=== PATIENT | male | born 1965 | race Caucasian/White ===

== ENCOUNTER 2017-12-12 17:24 | Emergency (ER) | payer OTHER ==
[~2017-12-12] VITALS: Ht 177.8 cm; Wt 86.2 kg
[2017-12-12 17:57] LABS: BASO % 1 % (0-3); EOS # 0.1 x10^3/uL (0.0-0.7); EOS % 1 % (0-3); HEMATOCRIT 42.8 % (39.0-53.0); HEMOGLOBIN 15.1 g/dL (13.0-17.5); LYMPH # 2.1 x10^3/uL (1.0-4.8); LYMPH % 33 % (24-48); MEAN CORPUSCULAR HEMOGLOBIN 34 pg (25-35); MEAN CORPUSCULAR HGB CONC 35 g/dL (31-37); MEAN CORPUSCULAR VOLUME 97 fL (79-100); MONO # 0.6 x10^3/uL (0.0-1.1); MONO % 10 % (0-9); NEUT # 3.5 x10^3uL (1.8-7.7); NEUT % 55 % (31-73); PLATELET COUNT 158 x10^3/uL (140-400); RED BLOOD COUNT 4.42 x10^6/uL (4.30-5.70); RED CELL DISTRIBUTION WIDTH 13.1 % (11.5-14.5); WHITE BLOOD COUNT 6.4 x10^3/uL (4.0-11.0)
[2017-12-12] MEDS ORDERED: MULTIVIT INFUSN,ADULT 4,VIT K 10 ML, THIAMINE INJ 100 MG, FOLIC ACID INJ 1 MG in IV NOR... IV SCH (18:00)
[2017-12-12 18:17] LABS: CALCIUM 9.7 mg/dL (8.5-10.1); CREATININE 0.9 mg/dL (0.7-1.3); GFR 88.6; POTASSIUM 3.4 mmol/L (3.5-5.1)
[2017-12-12 18:27] LABS: BILIRUBIN,URINE NEGATIVE (NEG); CLARITY,URINE CLEAR; COLOR,URINE YELLOW; NITRITE,URINE NEGATIVE (NEG); PROTEIN,URINE 100 mg/dL (NEG-TRACE)
[2017-12-12 18:31] LABS: ALBUMIN 4.1 g/dL (3.4-5.0); DIRECT BILIRUBIN 0.1 mg/dL (0.0-0.2); TOTAL BILIRUBIN 0.4 mg/dL (0.2-1.0); TOTAL PROTEIN 8.1 g/dL (6.4-8.2)
[2017-12-12 18:35] LABS: BARBITURATES NEG (NEG); BENZODIAZEPINES NEG (NEG); CANNABINOIDS NEG (NEG); COCAINE NEG (NEG); METHADONE NEG (NEG); OPIATES NEG (NEG); PHENCYCLIDINE NEG (NEG)
[2017-12-12 18:36] LABS: AMPHETAMINE/METHAMPHETAMINE NEG (NEG); BACTERIA,URINE 0 /HPF (0-FEW); HYALINE CASTS, URINE MODERATE /HPF; SQUAMOUS EPITHELIAL CELL,UR FEW /LPF; WBC,URINE RARE /HPF (0-4)
--- NOTE | 2017-12-12 19:03 | PHYS DOC ---
Past Medical History Past Medical History: Alcoholism, Hypertension Past Surgical History: Other Additional Past Surgical Histo: BACK Alcohol Use: Heavy Drug Use: None Adult General Chief Complaint Chief Complaint: ALCOHOL INTOXICATION HPI HPI Patient is a 52 year old male who presents with ETOH intoxication/abuse. Patient states he already has an inpatient bed and a treatment facility in [facility] but he had to come to the emergency department for medical clearance. He does endorse drinking large amounts of alcohol earlier today. He denies a prior history of seizures but does have some shakiness as he withdraws from alcohol. No additional acute complaints today. No chest pain. No recent fevers or chills. Review of Systems Review of Systems Constitutional: Denies fever or chills Eyes: Denies change in visual acuity HENT: Denies nasal congestion or sore throat Respiratory: Denies cough or shortness of breath Cardiovascular: No additional information not addressed in HPI GI: Denies abdominal pain, nausea, vomiting, bloody stool Musculoskeletal: Denies back pain or joint pain Integument: Denies rash or skin lesions Neurologic: Denies focal neuro complaints All other systems were reviewed and found to be within normal limits, except as documented in this note. Current Medications Current Medications Current Medications Medications (Trade) Dose Ordered Sig/Jan Start Time Stop Time Status Last Admin Dose Admin Multivitamins 10 ml/Thiamine HCl 100 mg/Folic Acid 1 mg/Sodium Chloride 1,011.2 ml @ 100 mls/ hr DAILY 12/12/17 18:00 12/12/17 19:54 DC 12/12/17 18:01 100 MLS/HR Allergies Allergies Allergies Coded Allergies Type Severity Reaction Last Updated Verified morphine Allergy Intermediate 12/12/17 Yes Physical Exam Physical Exam Constitutional: Well developed, well nourished, no acute distress, non-toxic appearance HENT: Normocephalic, atraumatic, bilateral external ears normal, oropharynx moist Eyes: PERRLA, EOMI Neck: Normal range of motion Cardiovascular:Heart rate regular rhythm, no murmur Lungs & Thorax: Bilateral breath sounds clear to auscultation Abdomen: Bowel sounds normal, soft, no tenderness Skin: Warm, dry, no erythema, no rash. Extremities: No edema Neurologic: Alert and oriented X 3 Psychologic: Affect normal Current Patient Data Vital Signs Vital Signs Date Time Temp Pulse Resp B/P (MAP) Pulse Ox O2 Delivery O2 Flow Rate FiO2 12/12/17 19:33 78 27 155/79 (104) Room Air 12/12/17 18:03 95 12/12/17 17:41 98.9 98.9 Lab Values Laboratory Tests Test 12/12/17 17:28 12/12/17 17:43 Urine Collection Type Unknown Urine Color Yellow Urine Clarity Clear Urine pH 7.0 Urine Specific [place] 1.015 Urine Protein 100 mg/dL (NEG-TRACE) Urine Glucose (UA) Negative mg/dL (NEG) Urine Ketones (Stick) Negative mg/dL (NEG) Urine Blood Small (NEG) Urine Nitrite Negative (NEG) Urine Bilirubin Negative (NEG) Urine Urobilinogen Dipstick 1.0 mg/dL (0.2 mg/dL) Urine Leukocyte Esterase Negative (NEG) Urine RBC 3-5 /HPF (0-2) Urine WBC Rare /HPF (0-4) Urine Squamous Epithelial Cells Few /LPF Urine Bacteria 0 /HPF (0-FEW) Urine Hyaline Casts Moderate /HPF Urine Mucus Mod /LPF Urine Opiates Screen Neg (NEG) Urine Methadone Screen Neg (NEG) Urine Barbiturates Neg (NEG) Urine Phencyclidine Screen Neg (NEG) Urine Amphetamine/Methamphetamine Neg (NEG) Urine Benzodiazepines Screen Neg (NEG) Urine Cocaine Screen Neg (NEG) Urine Cannabinoids Screen Neg (NEG) Urine Ethyl Alcohol Pos (NEG) White Blood Count 6.4 x10^3/uL (4.0-11.0) Red Blood Count 4.42 x10^6/uL (4.30-5.70) Hemoglobin 15.1 g/dL (13.0-17.5) Hematocrit 42.8 % (39.0-53.0) Mean Corpuscular Volume 97 fL (79-100) Mean Corpuscular Hemoglobin 34 pg (25-35) Mean Corpuscular Hemoglobin Concent 35 g/dL (31-37) Red Cell Distribution Width 13.1 % (11.5-14.5) Platelet Count 158 x10^3/uL (140-400) Neutrophils (%) (Auto) 55 % (31-73) Lymphocytes (%) (Auto) 33 % (24-48) Monocytes (%) (Auto) 10 % (0-9) H Eosinophils (%) (Auto) 1 % (0-3) Basophils (%) (Auto) 1 % (0-3) Neutrophils # (Auto) 3.5 x10^3uL (1.8-7.7) Lymphocytes # (Auto) 2.1 x10^3/uL (1.0-4.8) Monocytes # (Auto) 0.6 x10^3/uL (0.0-1.1) Eosinophils # (Auto) 0.1 x10^3/uL (0.0-0.7) Basophils # (Auto) 0.0 x10^3/uL (0.0-0.2) Sodium Level 144 mmol/L (136-145) Potassium Level 3.4 mmol/L (3.5-5.1) L Chloride Level 102 mmol/L (98-107) Carbon Dioxide Level 27 mmol/L (21-32) Anion Gap 15 (6-14) H Blood Urea Nitrogen 10 mg/dL (8-26) Creatinine 0.9 mg/dL (0.7-1.3) Estimated GFR (Cockcroft-Gault) 88.6 BUN/Creatinine Ratio 11 (6-20) Glucose Level 137 mg/dL (70-99) H Calcium Level 9.7 mg/dL (8.5-10.1) Total Bilirubin 0.4 mg/dL (0.2-1.0) Direct Bilirubin 0.1 mg/dL (0.0-0.2) Aspartate Amino Transferase (AST) 138 U/L (15-37) H Alanine Aminotransferase (ALT) 128 U/L (16-63) H Alkaline Phosphatase 72 U/L (46-116) Total Protein 8.1 g/dL (6.4-8.2) Albumin 4.1 g/dL (3.4-5.0) Albumin/Globulin Ratio 1.0 (1.0-1.7) Ethyl Alcohol Level 321 mg/dL (0-10) H Laboratory Tests 12/12/17 17:43 Laboratory Tests 12/12/17 17:43 EKG EKG [] Radiology/Procedures Radiology/Procedures [] Course & Med Decision Making Course & Med Decision Making Pertinent Labs and Imaging studies reviewed. (See chart for details) Patient is evaluated in the ER initially by the mid-level provider. Psychiatric assessment team consult is placed and that consult is in progress when I assumed care of the patient. Patient is in no acute distress. Labs are pending. 19:50: Patient is cleared for discharge from the ER and transferred to an inpatient detox center. His is currently present and will drive him there. All of their questions are answered prior to discharge home. Patient is agreeable to this plan of care. Dragon Disclaimer Dragon Disclaimer This electronic medical record was generated, in whole or in part, using a voice recognition dictation system. Departure Departure Referrals: UNKNOWN PCP NAME (PCP) BHARTI SHEARER DO Dec 12, 2017 19:03
[2017-12-12 19:33] VITALS: BP 155/79
== END 2017-12-12 19:54 | disposition home or self-care (01) ==
LOC: ER 17:24
DX: F10.229 Alcohol dependence with intoxication, unspecified (principal); I10 Essential (primary) hypertension; Y90.8 Blood alcohol level of 240 mg/100 ml or more; Z88.5 Allergy status to narcotic agent
CPT/HCPCS: 36415; 80053; 80307; 81001; 82248; 85025; 96365; 99284; G0480; J7030; 96366; G0479

== ENCOUNTER 2019-08-31 14:24 | Emergency (ER) | payer SELFPAY ==
[~2019-08-31] VITALS: Ht 177.8 cm; Wt 95.0 kg
[2019-08-31] MEDS ORDERED: MULTIVIT INFUSN,ADULT 4,VIT K 10 ML, THIAMINE INJ 100 MG, FOLIC ACID INJ 1 MG in IV NOR... IV ONE (15:00)
[2019-08-31 15:48] LABS: BASO # 0.1 x10^3/uL (0.0-0.2); BASO % 1 % (0-3); EOS # 0.1 x10^3/uL (0.0-0.7); EOS % 2 % (0-3); HEMATOCRIT 41.9 % (39.0-53.0); HEMOGLOBIN 14.8 g/dL (13.0-17.5); LYMPH # 1.8 x10^3/uL (1.0-4.8); LYMPH % 40 % (24-48); MEAN CORPUSCULAR HEMOGLOBIN 34 pg (25-35); MEAN CORPUSCULAR HGB CONC 35 g/dL (31-37); MEAN CORPUSCULAR VOLUME 97 fL (79-100); MONO # 0.3 x10^3/uL (0.0-1.1); MONO % 7 % (0-9); NEUT # 2.3 x10^3/uL (1.8-7.7); NEUT % 50 % (31-73); PLATELET COUNT 138 x10^3/uL (140-400); RED BLOOD COUNT 4.34 x10^6/uL (4.30-5.70); RED CELL DISTRIBUTION WIDTH 15.5 % (11.5-14.5); WHITE BLOOD COUNT 4.6 x10^3/uL (4.0-11.0)
--- NOTE | 2019-08-31 15:48 | PHYS DOC ---
Past Medical History Past Medical History: Alcoholism, Hypertension Past Surgical History: Other Additional Past Surgical Histo: BACK Smoking Status: Never Smoker Additional Information: CHEWING TOBACCO Alcohol Use: Heavy Drug Use: None General Adult EDM: Chief Complaint: ALCOHOL INTOXICATION HPI: HPI: Patient is a 54 year old [f__sex] who presents with [] Review of Systems: Review of Systems: Constitutional: Denies fever or chills. [] Eyes: Denies change in visual acuity. [] HENT: Denies nasal congestion or sore throat. [] Respiratory: Denies cough or shortness of breath. [] Cardiovascular: Denies chest pain or edema. [] GI: Denies abdominal pain, nausea, vomiting, bloody stools or diarrhea. [] : Denies dysuria. [] Musculoskeletal: Denies back pain or joint pain. [] Integument: Denies rash. [] Neurologic: Denies headache, focal weakness or sensory changes. [] Endocrine: Denies polyuria or polydipsia. [] Lymphatic: Denies swollen glands. [] Psychiatric: Denies depression or anxiety. [] Heart Score: Risk Factors: Risk Factors: DM, Current or recent (<one month) smoker, HTN, HLP, family history of CAD, obesity. Risk Scores: Score 0 - 3: 2.5% MACE over next 6 weeks - Discharge Home Score 4 - 6: 20.3% MACE over next 6 weeks - Admit for Clinical Observation Score 7 - 10: 72.7% MACE over next 6 weeks - Early Invasive Strategies Current Medications: Current Medications Medications (Trade) Dose Ordered Sig/Jan Start Time Stop Time Status Last Admin Dose Admin Multivitamins 10 ml/Thiamine HCl 100 mg/Folic Acid 1 mg/Sodium Chloride 1,011.2 ml @ 1,000 mls/ hr 1X ONCE 08/31/19 15:00 08/31/19 16:00 Allergies: Allergies: Allergies Coded Allergies Type Severity Reaction Last Updated Verified morphine Allergy Intermediate 12/12/17 Yes Physical Exam: PE: Constitutional: Well developed, well nourished, no acute distress, non-toxic appearance. [] HENT: Normocephalic, atraumatic, bilateral external ears normal, oropharynx moist, no oral exudates, nose normal. [] Eyes: PERRLA, EOMI, conjunctiva normal, no discharge. [] Neck: Normal range of motion, no tenderness, supple, no stridor. [] Cardiovascular:Heart rate regular rhythm, no murmur [] Lungs & Thorax: Bilateral breath sounds clear to auscultation [] Abdomen: Bowel sounds normal, soft, no tenderness, no masses, no pulsatile masses. [] Skin: Warm, dry, no erythema, no rash. [] Back: No tenderness, no CVA tenderness. [] Extremities: No tenderness, no cyanosis, no clubbing, ROM intact, no edema. [] Neurologic: Alert and oriented X 3, normal motor function, normal sensory function, no focal deficits noted. [] Psychologic: Affect normal, judgement normal, mood normal. [] Current Patient Data: Vital Signs: Vital Signs Date Time Temp Pulse Resp B/P (MAP) Pulse Ox O2 Delivery O2 Flow Rate FiO2 08/31/19 14:44 98.7 85 20 138/83 (101) 92 Room Air 98.7 EKG: EKG: @1538 NSR at 87bpm, NO ST elevation, QRS 92ms, QT/QTc 362/436ms Radiology/Procedures: Radiology/Procedures: [] Course & Med Decision Making: Course & Med Decision Making Pertinent Labs and Imaging studies reviewed. (See chart for details) [] Dragon Disclaimer: Dragon Disclaimer: This electronic medical record was generated, in whole or in part, using a voice recognition dictation system. Departure Departure Impression: Primary Impression: Alcohol abuse Disposition: HOME, SELF-CARE Condition: STABLE Referrals: UNKNOWN PCP NAME (PCP) Patient Instructions: Alcohol and Drug Addiction, Finding Treatment, How Much is Too Much Alcohol, [place] Justicifation of Admission Dx: Justifications for Admission: Justification of Admission Dx: N/A COLIN SUNG DO Aug 31, 2019 15:48
[2019-08-31 15:58] LABS: PROTHROMBIN TIME PATIENT 12.9 SEC (11.7-14.0)
[2019-08-31 15:59] LABS: CALCIUM 8.8 mg/dL (8.5-10.1); CREATININE 1.1 mg/dL (0.7-1.3); GFR 69.8; POTASSIUM 3.5 mmol/L (3.5-5.1)
[2019-08-31 16:00] VITALS: BP 138/83
[2019-08-31 16:07] LABS: ALBUMIN/GLOBULIN RATIO 1.1 (1.0-1.7); MAGNESIUM 1.9 mg/dL (1.8-2.4); TOTAL BILIRUBIN 0.4 mg/dL (0.2-1.0); TOTAL PROTEIN 7.6 g/dL (6.4-8.2)
[2019-08-31 16:12] LABS: SALIC < 2.8 mg/dL (2.8-20.0)
[2019-08-31 16:14] LABS: ACETAMIN < 2 mcg/ml (10-30); ETHANOL 422 mg/dL (0-10)
--- NOTE | 2019-09-02 12:07 | EKG ---
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
== END 2019-08-31 17:23 | disposition home or self-care (01) ==
LOC: ER 14:24
DX: F10.229 Alcohol dependence with intoxication, unspecified (principal); Y90.8 Blood alcohol level of 240 mg/100 ml or more; I10 Essential (primary) hypertension; F17.220 Nicotine dependence, chewing tobacco, uncomplicated; Z88.5 Allergy status to narcotic agent
CPT/HCPCS: 36415; 80053; 80329; 83735; 85025; 85610; 85730; 93005; 96365; 99284; G0480; J3411; J3490; J7030

== ENCOUNTER → 2020-01-22 | Outpatient (CLI) | payer OTHER | LOC: RT 06:02 | PROVIDERS: ATTEND Family Medicine | DX: R06.81 Apnea, not elsewhere classified (principal) | CPT/HCPCS: G0399 ==

== ENCOUNTER → 2020-05-14 | Outpatient (CLI) | payer OTHER ==
[~2020-05-14] MED LIST: LISI20TA18 PO; ROSU20TA28 PO
== END ==
LOC: LAB 09:55
PROVIDERS: ATTEND Internal Medicine Gastroenterology
DX: Z01.812 Encounter for preprocedural laboratory examination (principal); Z12.11 Encounter for screening for malignant neoplasm of colon; Z20.822 Contact with and (suspected) exposure to COVID-19
CPT/HCPCS: U0003

== ENCOUNTER → 2020-05-15 | Day surgery (SDC) | payer OTHER ==
[~2020-05-15] MED LIST changes: +IV RINGERS,LACTATED 1000ML 1,000 ML IV SCH; +LIDOCAINE 2% PF 5 ML VIAL. ONE; +PROPOFOL 10 MG/ML (20ML) VIAL. IV ONE
[2020-05-15 09:31] VITALS: BP 113/62
--- NOTE | 2020-05-15 11:15 | CONS ---
DATE OF CONSULTATION: 05/15/2020 REASON FOR CONSULTATION: Colorectal screening. REFERRING PHYSICIAN: Aruna Esparza MD. HISTORY OF PRESENT ILLNESS: This is a 55-year-old male with past medical history significant for back surgery, tonsillectomy, varicocele repair as well as hypertension, hyperlipidemia, seen for colonoscopy. Bowel habits are regular without diarrhea or constipation. There has been no melena and/or hematochezia. Weight and appetite are stable. No family history of colon cancer is noted. He is, otherwise, without additional complaints. PAST MEDICAL HISTORY: Hypertension, hyperlipidemia, status post back surgery, tonsillectomy, varicocele repair. MEDICATIONS: Include lisinopril and rosuvastatin. ALLERGIES: TO MORPHINE. FAMILY AND SOCIAL HISTORY: Significant for diabetes. REVIEW OF SYSTEMS: HEENT: There is no decreased hearing or visual acuity issues. CARDIAC: There is history of hypertension. ENDOCRINE: History of hyperlipidemia. NEUROLOGIC: No stroke, migraine, neuropathy. PSYCHIATRIC: No mood swings, depression, insomnia. HEMATOLOGIC: No bleeding, bruising, coagulopathy. DERMATOLOGIC: No skin rashes or pruritus. MUSCULOSKELETAL: History of osteoarthrosis. GASTROINTESTINAL: See history of present illness. PHYSICAL EXAMINATION: GENERAL: Reveals a well-nourished, well-developed male who is alert, cooperative, in no acute distress. VITAL SIGNS: Temperature is 98.4, pulse 79, respirations 20. LUNGS: Clear. CARDIOVASCULAR: Reveals an S1, S2 without S3, S4 or appreciable murmur. ABDOMEN: Reveals a soft abdomen, normal bowel sounds, without appreciable hepatosplenomegaly. EXTREMITIES: Reveals no cyanosis, clubbing or edema. IMPRESSION: Colorectal screening is warranted at this time. Risks and benefits of procedure including risk of hemorrhage and perforation during the operation were discussed. The patient is willing to proceed at this time. I thank Dr. Aruna Esparza for allowing us to consult and participate in the patient's care. NICHOLE FOREMAN MD DR: ZELDA/igor JOB#: [id number] / [id number] ARUNA Stone MD ,
--- NOTE | 2020-05-19 14:20 | PATHOLOGY ---
[facility] Accession Number: [id number] . 01 Material submitted: . sigmoid colon - SIGMOID COLON POLYP BIOPSY . 01 Clinical history: . SCREENING CRC SCREENING COLONOSCOPY . 02 Diagnosis: Colon biopsies, sigmoid colon polyp: - Tubular adenoma. (JPM:[facility]; 05/18/2020) S 05/18/2020 1539 Local . 02 Comment: There is no high grade dysplasia or evidence of malignancy. (JPM:[facility]; 05/18/2020) . 02 Electronically signed: . Rohan Ann MD, Pathologist NPI- [id number] . 01 Gross description: . Received in formalin labeled "Iris, Lauryn, sigmoid polyp BX" are multiple lewis-brown soft tissue fragments measuring in aggregate 0.6 x 0.5 x 0.1 cm. The specimen is submitted entirely in A1. [place] [place] SY/[facility] 05/17/2020 1111 Local . 02 Pathologist provided ICD-10: D12.5 . 02 CPT . 155072 Specimen Comment: A courtesy copy of this report has been sent to [phone], [phone] Specimen Comment: [id number], Specimen Comment: Report sent to ,DR PERALTA / DR HILL Performed at: 01 [facility] [address], [place] [id number] MD Ronnie Stinson MD Phone: [phone] Performed at: 02 [facility] [address] [place], [place] [id number] MD Rohan Ann MD Phone: [phone]
== END | disposition home or self-care (01) ==
LOC: ENDOS 07:57
PROVIDERS: ATTEND Internal Medicine Gastroenterology
DX: Z12.11 Encounter for screening for malignant neoplasm of colon (principal); K64.0 First degree hemorrhoids; K57.30 Diverticulosis of large intestine without perforation or abscess without bleeding; K63.89 Other specified diseases of intestine; D12.5 Benign neoplasm of sigmoid colon; E78.00 Pure hypercholesterolemia, unspecified; I10 Essential (primary) hypertension; G47.30 Sleep apnea, unspecified; F32.9 Major depressive disorder, single episode, unspecified; Z79.899 Other long term (current) drug therapy; Z98.890 Other specified postprocedural states; Z83.3 Family history of diabetes mellitus; Z87.891 Personal history of nicotine dependence; Z88.8 Allergy status to other drugs, medicaments and biological substances
CPT/HCPCS: 45380; 88305; J2704

== ENCOUNTER → 2020-06-01 | Outpatient (CLI) | payer OTHER ==
[2020-05-15 09:31] VITALS: BP 113/62
[~2020-06-01] MED LIST changes: -IV RINGERS,LACTATED 1000ML 1,000 ML IV SCH; -LIDOCAINE 2% PF 5 ML VIAL. ONE; -PROPOFOL 10 MG/ML (20ML) VIAL. IV ONE
--- NOTE | 2020-06-01 12:48 | CARD ---
MR#: [id number] Date of Study: 06/01/2020 Ordering Physician: ARUNA HILL, Referring Physician: ARUNA HILL Tech: Charley Manuel REN APPROVED REPORT EXAM: Two-dimensional and M-mode echocardiogram with Doppler and color Doppler. Other Information Quality : FairHR: 79bpm Rhythm : NSR INDICATION Hypertension/HCVD RISK FACTORS Hypertension Obesity Hyperlipidemia 2D DIMENSIONS RVDd3.7 (2.9-3.5cm)Left Atrium(2D)4.0 (1.6-4.0cm) IVSd1.5 (0.7-1.1cm)LVDd4.5 (3.9-5.9cm) LVOT Diameter2.3 (1.8-2.4cm)PWd1.2 (0.7-1.1cm) LVDs3.0 (2.5-4.0cm)FS (%) 33.5 % SV58.9 mlLVEF(%)62.3 (>50%) Aortic Valve LVOT Peak John.135.9cm/sLVOT VTI 31.43cm Mitral Valve MV E Vsnxwpjd31.9cm/sMV DECEL [id number] MV A Muobdxjn77.6cm/sMV [id number] E/A Ratio1.1MVA (PHT)2.98cm2 Tricuspid Valve TR P. [id number]/sTR Peak Gr.23mmHg LEFT VENTRICLE The left ventricle is normal size. There is mild concentric left ventricular hypertrophy. The left ve ntricular systolic function is normal and the ejection fraction is within normal range. LV ejection fraction of 60-65%. There is normal LV segmental wall motion. The left ventricular diastolic function and filling is normal for age. RIGHT VENTRICLE The right ventricle is normal size. There is normal right ventricular wall thickness. The right ventr icular systolic function is normal. ATRIA The left atrium size is normal. The right atrium size is normal. The interatrial septum is intact wit h no evidence for an atrial septal defect or patent foramen ovale as noted on 2-D or Doppler imaging. AORTIC VALVE The aortic valve is normal in structure and function. Doppler and Color Flow revealed no significant aortic regurgitation. There is no significant aortic valvular stenosis. MITRAL VALVE The mitral valve is normal in structure and function. There is no evidence of mitral valve prolapse. There is no mitral valve stenosis. Doppler and Color-flow revealed trace to mild mitral regurgitation . TRICUSPID VALVE The tricuspid valve is normal in structure and function. Doppler and Color Flow revealed trace tricus pid regurgitation. Estimated PAP 27 mmHg. There is no tricuspid valve stenosis. PULMONIC VALVE The pulmonary valve is normal in structure and function. Doppler and Color Flow revealed no pulmonic valvular regurgitation. GREAT VESSELS The aortic root is mildly enlarged. The ascending aorta is mildly dilated. The IVC is normal in size and collapses >50% with inspiration. PERICARDIAL EFFUSION There is no evidence of significant pericardial effusion. Critical Notification Critical Value: No <Conclusion> The left ventricle is normal size. The left ventricular systolic function is normal and the ejection fraction is within normal range. LV ejection fraction of 60-65%. There is mild concentric left ventricular hypertrophy. Doppler and Color Flow revealed no significant aortic regurgitation. There is no significant aortic valvular stenosis. Doppler and Color-flow revealed trace to mild mitral regurgitation. Doppler and Color Flow revealed trace tricuspid regurgitation. Estimated PAP 27 mmHg. The aortic root is mildly enlarged. The ascending aorta is mildly dilated. Signed by : Andrew Morris MD Electronically Approved : 06/01/2020 12:47:35
== END ==
LOC: ECHO 10:59
PROVIDERS: ATTEND Family Medicine
DX: I34.0 Nonrheumatic mitral (valve) insufficiency (principal); I11.9 Hypertensive heart disease without heart failure; I77.810 Thoracic aortic ectasia
CPT/HCPCS: 93306

== ENCOUNTER → 2020-11-10 | Outpatient (CLI) | payer OTHER ==
[2020-05-15 09:31] VITALS: BP 113/62
--- NOTE | 2020-11-10 14:00 | KCIC ---
EXAM: Lumbar spine MRI without contrast. HISTORY: Left lower extremity radiculopathy. TECHNIQUE: Multiplanar, multisequence magnetic resonance imaging of the lumbar spine was performed wi thout contrast. COMPARISON: None. FINDINGS: There is mild lumbar scoliosis. There is 5 mm retrolisthesis of L5 on S1. There is degenera tive endplate remodeling with disc space narrowing and osteophytosis at L5-S1. There is also endplate remodeling and disc desiccation at L3-L4 and L4-L5. There is no acute or subacute fracture or suspic ious osseous lesion. The conus terminates at L1. At L1-L2, there is minimal bilateral facet arthropathy. There is no stenosis. At L2-L3, there is endplate remodeling. There is minimal facet arthropathy. There is prominent dorsal epidural fat. There is mild central canal stenosis. At L3-L4, there is a shallow left foraminal disc protrusion and annular tear superimposed on a disc b ulge and endplate remodeling. There is also a suspected shallow left foraminal to lateral disc protru sadia. There is minimal facet arthropathy. There is prominent dorsal epidural fat. There is mild right and minimal left foraminal stenosis with abutment of the exiting right greater than left L3 nerve ro ots. There is mild central canal stenosis. At L4-L5, there is a broad-based posterior central disc protrusion and annular tear with minimal infe rior extrusion superimposed on a disc bulge and endplate remodeling. There is mild bilateral facet ar thropathy. There is prominent dorsal epidural fat. There is mild left foraminal stenosis. There is mo derate central canal stenosis. At L5-S1, there are laminectomy decompression changes. There is retrolisthesis. There is a diffuse di sc bulge and endplate osteophytosis. There is mild bilateral facet arthropathy. There is mild right a nd moderate left foraminal stenosis with abutment the exiting L5 nerve roots. There is mild effacemen t of the right greater than left lateral recesses with abutment the traversing right greater than lef t S1 nerve root. IMPRESSION: 1. Multilevel degenerative change involving the lumbar spine, described in detail above. The combinat ion of degenerative changes and prominent dorsal epidural fat results in mild central canal stenosis at L2-L3, moderate right and minimal left foraminal and mild central canal stenosis at L3-L4, mild le ft foraminal and moderate central canal stenosis at L4-L5 and moderate right and moderate left forami nal and bilateral lateral recess stenosis at L5-S1. 2. Laminectomy decompression at L5-S1. Electronically signed by: Rita Salazar MD (11/10/2020 10:38 AM) [facility]
== END ==
LOC: KCIC MRI 09:23
PROVIDERS: ATTEND Family Medicine
DX: M47.27 Other spondylosis with radiculopathy, lumbosacral region (principal); M51.17 Intervertebral disc disorders with radiculopathy, lumbosacral region; M48.07 Spinal stenosis, lumbosacral region; M41.86 Other forms of scoliosis, lumbar region; M21.372 Foot drop, left foot
CPT/HCPCS: 72148

== ENCOUNTER → 2020-12-30 | Outpatient (CLI) | payer OTHER ==
[2020-05-15 09:31] VITALS: BP 113/62
[~2020-12-30] MED LIST changes: +ACET500T68 PO; +AMLO2.5T5 PO; +ASPI-621 PO; +INDO50CA15 PO; +SUMA100T4 PO; +mens multivitamin
--- NOTE | 2020-12-30 17:08 | PDOC1 ---
INITIAL PAIN CONSULT DATE OF SERVICE: DOS: DATE: 12/30/20 TIME: 17:02 CHIEF COMPLAINT: Chief Complaint: Low back and left lower extremity pain HISTORY OF PRESENT ILLNESS: 55-year-old male presents with history of pain in the low back left lower extremity since July of this year starting fairly suddenly without the result of any specific injury or accident that he is aware of patient reports pain is increasing since that time in the low back rating to left posterior gluteus posterior thigh posterior calf anterior thigh anteromedial calf lateral thigh and posterior calf as well as into the foot to the ankle. Patient reports gets worse with walking standing changing position specially getting up from seated position and standing for prolonged periods greater than 20 to 30 minutes patie nt reports sharp throbbing stabbing shooting with numbness and radiating pain in the leg aching in the back intermittent intensity but always present patient reports generally does not awaken her from sleep at night but some nights it does not affect his bowel bladder control but does affect his go to walk fairly significantly although is not use any assistive devices. Patient is taking indomethacin as well as naproxen and Excedrin with indomethacin and the Excedrin does seem to help with the naproxen has not patient has had physical therapy in the past still doing stretching strength exercises on his own but is not helping significantly patient has had some chiropractic treatment previously but has been many years ago and nothing recently with chiropractic treatment. Patient rates his disability rating 0-10 10 being the worst is a 6 with family home responsibilities 8 with recreational activities 5 with social activity occupation for sexual behavior 6 with self-care and 8 with life support activities. Patient did have an MRI scan of the lumbar spine showing multilevel degenerative change degenerative changes and prominent dorsal epidural fat and mild central canal stenosis L2-3 moderate right and minimal left foraminal and mid mild central canal stenosis L3-4 mild left foraminal and moderate central canal stenosis at L4-5 and moderate right and moderate left foraminal and bilateral lateral recess stenosis at L5-S1 with previous laminectomy decompression at L5-S1 noted as well. PAST MEDICAL HISTORY: PMH: Hypertension, arthritis, alcoholism, hyperlipidemia PREVIOUS SURGERIES: Past Surgical Hx: Tonsillectomy, hernia repair 1985, laminectomy 2000 CURRENT MEDICATIONS: Current Meds: Active Scripts Medications Dose Route/Sig Max Daily Dose Days Date Category Acetaminophen 500 Mg Tablet 1 Tab PO PRN Q6HRS PRN 15 12/30/20 Reported Indomethacin 50 Mg Capsule 50 Mg PO PRN PRN 12/30/20 Reported [mens multivitamin] 1 Tab DAILY 12/30/20 Reported Amlodipine Besylate 2.5 Mg Tablet Unknown Dose PO DAILY 12/30/20 Reported Excedrin Extra Strength Caplet (Aspirin/Acetaminophen/Caffeine) 1 Each Tablet 1 Each PO PRN PRN 12/30/20 Reported Rosuvastatin Calcium 20 Mg Tablet 20 Mg PO DAILY 05/15/20 Reported Lisinopril 20 Mg Tablet 20 Mg PO DAILY 05/15/20 Reported ALLERGIES; Allergies: Coded Allergies: morphine (Verified Allergy, Intermediate, 05/15/20) FAMILY HISTORY: Family Hx: Diabetes, cardiomyopathy, Alzheimer's disease SOCIAL HISTORY: Social Hx: Patient does not dyan alcohol is currently recovering alcoholic does chew tobacco does not smoke not use any illegal illicit or recreational drugs is lives with his spouse with 1 child living at home in [facility] REVIEW OF SYSTEMS: ROS: Positive for those items mentioned in history of present illness, all systems are reviewed, otherwise negative ,and are complete full and well-documented on patient's chart. PHYSICAL EXAM: VS: Blood pressure is 141/106 pulse 77 respirations 16 temperature 98.1 F height is 69.5 inches weight 233 pounds PE: PHYSICAL EXAMINATION: GENERAL: The patient is awake, alert, oriented, appropriate, very pleasant in demeanor HEENT: Shows normocephalic, atraumatic. Extraocular movements are intact and symmetrical. Oral cavity: Mucous membranes moist and pink. Dentition is intact. NECK: Shows anterior throat supple without palpable lymphadenopathy noted. Swallow reflex symmetrical. CHEST: Shows normal on inspection. Breath sounds are clear bilaterally, distant but no rales or rhonchi. HEART: Shows S1, S2 clear. No murmurs auscultated. ABDOMEN: Soft, nontender, nondistended, obese. No palpable organomegaly is noted. BACK: Shows spine grossly in the midline. Normal-appearing cervical lordotic curvature. There is slightly increased thoracic kyphosis, some minor flattening of the lumbar lordotic curvature. Lumbar paraspinous muscles show symmetrical on inspection, on palpation shows some moderate tenderness diffusely throughout the upper, middle and lower distribution of the paraspinous muscles bilaterally and also into the lower thoracic paraspinous musculature, firm and tender, but without specific trigger points, without radiation of pain. The patient has good rotational motion of the lumbar spine, both laterally as well as extension and flexion without significant difficulty. No tenderness over the spinous processes, sacrum or sacroiliac regions. EXTREMITIES: Lower extremities show deep tendon reflexes 2+ in the patellar and tendo calcaneus tendons. Motor exam is 5 on a scale of 5 with right dorsiflexion, extension, quadriceps and hamstring flexion and 4/5 on the left. Patient has had mild foot drop on the left side. Peripheral pulses are 1+ posterior tibial. No peripheral edema is noted bilaterally. Lower extremities are warm and dry to touch, equal in color and appearance. Straight leg raise noted to be negative on the right, left side is positive at approximately 40 degrees, decreased with knee flexion. Gaenslen's and Alexx's maneuvers are negative bilaterally. The patient is able to stand, stand on his toes but has a significant favoring gait favoring the left lower extremity especially when first rising and first walking. Patient is not using any assistive devices to ambulate. SKIN: Shows warm and dry, good turgor. No edema. No sores, rashes or bruising throughout. IMPRESSION: Impression: 55-year-old male with approximate 5-month history increasing pain low back left lower extremity in a radicular fashion following L5-S1 dermatomal distribution. Partial foot drop left ankle MRI scan lumbar spine as noted Arthritis Hypertension Hyperlipidemia Plan: Options were discussed with patient including conservative management continued physical therapies and interventional techniques. Patient would like to pursue interventional techniques as he has been doing his physical therapy strengthening stretching exercises without significant improvement as well as oral analgesics without significant improvement as well. Patient wait for preauthorization with insurance provider once approved, we will plan on translaminar approach L5-S1 level L lumbar epidural steroid injection with fluoroscopic guidance. In the meantime, patient will continue with stretching s trengthening as currently as well as oral analgesics. BHARTI GUTIÉRREZ MD Dec 30, 2020 17:08
== END | disposition home or self-care (01) ==
LOC: PNCL 09:17
PROVIDERS: ATTEND Anesthesiology
DX: M54.16 Radiculopathy, lumbar region (principal); G89.29 Other chronic pain; I10 Essential (primary) hypertension; E78.5 Hyperlipidemia, unspecified; M19.90 Unspecified osteoarthritis, unspecified site; Z98.890 Other specified postprocedural states; Z79.899 Other long term (current) drug therapy; Z88.8 Allergy status to other drugs, medicaments and biological substances
CPT/HCPCS: 99214; G0463

== ENCOUNTER → 2021-01-13 | Outpatient (CLI) | payer OTHER ==
[2020-05-15 09:31] VITALS: BP 113/62
[~2021-01-13] MED LIST changes: +IOHEXOL 180 MG/ML 10 ML VIAL. ONE; +methylPREDNISolone ACETATE 40 MG/ML VIAL. ONE; +methylPREDNISolone ACETATE 80 MG/ML VIAL. ONE
--- NOTE | 2021-01-13 10:14 | PDOC ---
Progress Note - Pain Clinic Date of Service: DOS: DATE: 01/13/21 TIME: 10:11 Diagnosis: Dx: Lumbar radiculopathy with lumbar degenerative disease lumbar spinal stenosis and lumbar postlaminectomy syndrome History or Present Illness: HPI: 55-year-old male status post evaluation with complaints of low back and left lower extremity pain posterior gluteus posterior thigh posterior calf status post stretching strengthening as well as physical therapies exercises patient reports no significant pain low back left leg sharp shooting tingling stabbing on and off intensity worse with walking standing better with sitting or laying down still disturbed sleep fairly frequently patient has a new finding of cluster headache on the right side which is being treated with sumatriptan with some mild reduction in pain but still significant pain in the right eye and right headache. Patient reports her pain is 8 on scale 10 is worse over the past week with regard to his low back and left leg forward average 1 its least is a 4 today. Patient reports no bowel or bladder incontinence no motor loss but significant fatigability of the left lower extremity. Physical Exam: VS: Blood pressure is 139/98 pulse 81 respirations of 18 temperature is 97.5 F height is 5 feet 10 inches weight is 238 pounds. PE: PHYSICAL EXAMINATION: GENERAL: The patient is awake, alert, oriented, appropriate, very pleasant demeanor HEENT: Shows normocephalic, atraumatic. Extraocular movements are intact and symmetrical. Oral cavity: Mucous membranes moist and pink. Dentition is intact. NECK: Shows anterior throat supple without palpable lymphadenopathy noted. Swallow reflex symmetrical. CHEST: Shows normal on inspection. Breath sounds are clear bilaterally, distant but no rales or rhonchi. HEART: Shows S1, S2 clear. No murmurs auscultated. ABDOMEN: Soft, nontender, nondistended, obese. No palpable organomegaly is noted. BACK: Shows spine grossly in the midline. Normal-appearing cervical lordotic curvature. There is slightly increased thoracic kyphosis, some minor flattening of the lumbar lordotic curvature. Lumbar paraspinous muscles show symmetrical on inspection, on palpation shows some moderate tenderness diffusely throughout the upper, middle and lower distribution of the paraspinous muscles, but without specific trigger points, without radiation of pain. The patient has good rotational motion of the lumbar spine, both laterally as well as extension and flexion without significant difficulty. EXTREMITIES: Lower extremities show deep tendon reflexes 2+ in the patellar and tendo calcaneus tendons. Motor exam is 5 on a scale of 5 with right dorsiflexion, extension, quadriceps and hamstring flexion and 4/5 on the left. Peripheral pulses are 1+ posterior tibial. No peripheral edema is noted bilaterally. Lower extremities are warm and dry to touch, equal in color and appearance. SKIN: Shows warm and dry, good turgor. No edema. No sores, rashes or bruising throughout. Procedure: Procedure: Options were discussed with patient. Patient chart reviewed his current medication regimen updated current review of systems updated today as well. We will proceed with a lumbar epidural steroid injection today with fluoroscopic guidance. Risks were discussed including but not limited to: Bleeding, infection, possibility of epidural hematoma and subsequent neurological compromise, dural puncture, headaches, spinal cord and/or nerve damage, side effects of steroid medication, and poor results regarding pain control. Patient understands and wished to proceed. Patient will return to clinic in approximate 2 weeks for follow-up, was counseled as return appointment, activity level, and side effects to be aware of. Medication Injected: Med Injected: Procedure is lumbar epidural steroid injection under local anesthetic using sterile prep and drape at the L5-S1 level using C-arm fluoroscopic guidance in both AP and lateral views medications injected is 120 mg Depo-Medrol +10mL preservative-free normal saline and 2 mL contrast- condition at discharge is stable patient tolerated procedure well had no complications. Condition at Discharge: Condition at Discharge: Patient discharge stable, paced tolerated procedure well had no complications BHARTI GUTIÉRREZ MD Jan 13, 2021 10:14
--- NOTE | 2021-01-13 10:15 | PDOC4 ---
Procedure Note: ICD 10 Code: ICD 10 Code: M54.17 M51.87 M4 8.07 M 96.1 Procedure Note: Patient was consented for lumbar epidural steroid injection with fluoroscopic guidance. Risks were discussed including but not limited to: Bleeding, infection, possibility of epidural hematoma and subsequent neurological compromise, dural puncture, headaches, spinal cord and/or nerve damage, side effects of steroid medication, and poor results regarding pain control. Patient understands and wished to proceed. Procedure is lumbar epidural steroid injection under local anesthetic using sterile prep and drape at the L5-S1 level using C-arm fluoroscopic guidance in both AP and lateral views medications injected is 120 mg Depo-Medrol +10mL preservative-free normal saline and 2 mL contrast- condition at discharge is stable patient tolerated procedure well had no complications. BHARTI GUTIÉRREZ MD Jan 13, 2021 10:15
== END | disposition home or self-care (01) ==
LOC: PNCL 09:05
PROVIDERS: ATTEND Anesthesiology
DX: M51.16 Intervertebral disc disorders with radiculopathy, lumbar region (principal); M48.061 Spinal stenosis, lumbar region without neurogenic claudication; M96.1 Postlaminectomy syndrome, not elsewhere classified; I10 Essential (primary) hypertension; E78.00 Pure hypercholesterolemia, unspecified; G47.30 Sleep apnea, unspecified; F32.9 Major depressive disorder, single episode, unspecified; Z79.899 Other long term (current) drug therapy; Z98.890 Other specified postprocedural states; Z88.6 Allergy status to analgesic agent; Z79.82 Long term (current) use of aspirin; Z72.89 Other problems related to lifestyle
CPT/HCPCS: 62323; J1030; J1040; Q9965

== ENCOUNTER → 2021-01-27 | Outpatient (CLI) | payer OTHER ==
[2020-05-15 09:31] VITALS: BP 113/62
[~2021-01-27] MED LIST changes: -IOHEXOL 180 MG/ML 10 ML VIAL. ONE; +VERA240C2 PO; -methylPREDNISolone ACETATE 40 MG/ML VIAL. ONE; -methylPREDNISolone ACETATE 80 MG/ML VIAL. ONE
--- NOTE | 2021-01-27 11:41 | PDOC ---
Progress Note - Pain Clinic Date of Service: DOS: DATE: 01/27/21 TIME: 11:38 Diagnosis: Dx: Lumbar radiculopathy with lumbar degenerative disease lumbar spinal stenosis lumbar postlaminectomy syndrome History or Present Illness: HPI: 55-year-old male returns for follow-up status post lumbar epidural steroid injection x1. Patient reports about 70% improvement in the low back and left lower extremity pain increasing activity greater ease and comfort walking greater distances doing household activities work activities sleeping much better generally not awaken from sleep at night at this time patient reports is in the left low back posterior gluteus posterior thigh posterior calf not draining his left leg is much he did have some foot drop on previous exam. Patient reports pain is a 6 on scale 10 is worse over the past week to an average 1 its least is a 2 today. Patient reports no bowel or bladder i ncontinence very pleased with his progress and was increase activity significantly without as much fatigue in the left lower extremity moderately still present. Patient continues to do stretching strength exercises daily is walking daily also using oral analgesics as needed but this is decreased significantly since his last visit [id number] anti-inflammatories nearly as often. Physical Exam: VS: Blood pressure is 135/78 pulse 70 respirations 18 temperature 97 point degrees Fahrenheit weight is 239 pounds. PE: PHYSICAL EXAMINATION: GENERAL: The patient is awake, alert, oriented, appropriate, very pleasant in demeanor HEENT: Shows normocephalic, atraumatic. Extraocular movements are intact and sy mmetrical. Oral cavity: Mucous membranes moist and pink. Dentition is intact. NECK: Shows anterior throat supple without palpable lymphadenopathy noted. Swallow reflex symmetrical. CHEST: Shows normal on inspection. Breath sounds are clear bilaterally, distant but no rales or rhonchi. HEART: Shows S1, S2 clear. No murmurs auscultated. ABDOMEN: Soft, nontender, nondistended, obese. No palpable organomegaly is noted. BACK: Shows spine grossly in the midline. Normal-appearing cervical lordotic curvature. There is slightly increased thoracic kyphosis, some flattening of the lumbar lordotic curvature. Lumbar paraspinous muscles show symmetrical on inspection, on palpation shows some moderate tenderness diffusely throughout the upper, middle and lower distribution of the paraspinous muscles, but without specific trigger points, without radiation of pain. The patient has good rota tional motion of the lumbar spine, both laterally as well as extension and flexion without significant difficulty. EXTREMITIES: Lower extremities show deep tendon reflexes 2+ in the patellar and tendo calcaneus tendons. Motor exam is 5 on a scale of 5 with right dorsiflexion, extension, quadriceps and hamstring flexion and 4/5 on the left. Peripheral pulses are 1+ posterior tibial. No peripheral edema is noted bilaterally. Lower extremities are warm and dry to touch, equal in color and appearance. SKIN: Shows warm and dry, good turgor. No edema. No sores, rashes or bruising throughout. Procedure: Procedure: Options discussed with patient. Patient chart was reviewed his current medication regimen updated current review of systems updated today as well. We will preauthorize patient for a additional lumbar epidural steroid injection he did very well with the first injection about 70% improvement with pain returning down to radicular fashion following L5-S1 dermatomal distribution on the left but with improved foot drop as well. Patient will continue in the meantime, with stretching strength exercises daily as well as daily walking as well as oral analgesics as needed. Medication Injected: Med Injected: None Condition at Discharge: Condition at Discharge: Condition at discharge is stable. BHARTI GUTIÉRREZ MD Jan 27, 2021 11:41
== END | disposition home or self-care (01) ==
LOC: PNCL 10:22
PROVIDERS: ATTEND Anesthesiology
DX: M51.16 Intervertebral disc disorders with radiculopathy, lumbar region (principal); M48.061 Spinal stenosis, lumbar region without neurogenic claudication; M96.1 Postlaminectomy syndrome, not elsewhere classified; I10 Essential (primary) hypertension; E78.00 Pure hypercholesterolemia, unspecified; G47.30 Sleep apnea, unspecified; Z79.82 Long term (current) use of aspirin; Z79.899 Other long term (current) drug therapy; Z98.890 Other specified postprocedural states; Z88.6 Allergy status to analgesic agent; Z72.89 Other problems related to lifestyle
CPT/HCPCS: 99212; G0463

== ENCOUNTER → 2021-02-10 | Outpatient (CLI) | payer OTHER ==
[2020-05-15 09:31] VITALS: BP 113/62
[~2021-02-10] MED LIST changes: +IOHEXOL 180 MG/ML 10 ML VIAL. ONE; +VERA300C6 PO; +methylPREDNISolone ACETATE 40 MG/ML VIAL. ONE; +methylPREDNISolone ACETATE 80 MG/ML VIAL. ONE
--- NOTE | 2021-02-10 10:22 | PDOC ---
Progress Note - Pain Clinic Date of Service: DOS: DATE: 02/10/21 TIME: 10:20 Diagnosis: Dx: Lumbar radiculopathy with lumbar degenerative disease lumbar spinal stenosis lumbar postlaminectomy syndrome History or Present Illness: HPI: 56-year-old male returns for follow-up status post lumbar epidural steroid action x1. Patient worked at 70% improvement in the pain is from the low back and left lower extremity patient reports pain returning now also right-sided headache he is to complaining of is well today patient reports pain in the low back and left leg is rating the posterior gluteus posterior thigh posterior calf mostly in the hip and low back however patient reports is an 8 on scale 10 is worse over the past week 5 on average 3 distillation is a 5 today patient report s is aching sharp dull in the back shooting in the leg can be severe and unbearable with walking standing patient reports is better with sitting or laying down but is awakened from sleep about every 4-6 hours at night patient reports initially doing much better with distance walking doing household activities work activities and sleeping better as well as traveling with greater ease and comfort. Patient reports still significant headache on the right side which is "almost worst" in the back. Patient reports no bowel or bladder incontinence. Physical Exam: VS: Blood pressure 131/73 pulse 71 respirations are 16 temperature is 98.4 F weight is 236 pounds PE: PHYSICAL EXAMINATION: GENERAL: The patient is awake, alert, oriented, appropriate, very pleasant in demeanor HEENT: Shows normocephalic, atraumatic. Extraocular movements are intact and symmetrical. Oral cavity: Mucous membranes moist and pink. Dentition is intact. NECK: Shows anterior throat supple without palpable lymphadenopathy noted. Swallow reflex symmetrical. CHEST: Shows normal on inspection. Breath sounds are clear bilaterally. HEART: Shows S1, S2 clear. No murmurs auscultated. ABDOMEN: Soft, nontender, nondistended. No palpable organomegaly is noted. BACK: Shows spine grossly in the midline. Normal-appearing cervical lordotic curvature. There is slightly increased thoracic kyphosis, some flattening of the lumbar lordotic curvature, with well-healed midline surgical scar. Lumbar paraspinous muscles show symmetrical on inspection, on palpation shows some moderate tenderness diffusely throughout the upper, middle and lower distribution of the paraspinous muscles bilaterally and also into the lower thoracic paraspinous musculature, firm and tender, but without specific trigger points, without radiation of pain. The patient has good rotational motion of the lumbar spine, both laterally as well as extension and flexion without significant difficulty. No tenderness over the spinous processes, sacrum or sacroiliac regions. EXTREMITIES: Lower extremities show deep tendon reflexes 2+ in the patellar and tendo calcaneus tendons. Motor exam is 5 on a scale of 5 with right dorsiflexion, extension, quadriceps and hamstring flexion and 4/5 on the left. Peripheral pulses are 1+ posterior tibial. No peripheral edema is noted bilaterally. Lower extremities are warm and dry to touch, equal in color and appearance. SKIN: Shows warm and dry, good turgor. No edema. No sores, rashes or bruising throughout. Procedure: Procedure: Options discussed with the patient. Patient chart was reviewed as his current medication regimen updated current review of systems updated today as well. We will proceed with a lumbar epidural steroid injection today with fluoroscopic guidance. Risks were discussed including but not limited to: Bleeding, infection, possibility of epidural hematoma and subsequent neurological compromise, dural puncture, headaches, spinal cord and/or nerve damage, side effects of steroid medication, and poor results regarding pain control. Patient understands and wished to proceed. Patient will return to clinic in approximately 2 weeks for follow-up, was counseled as to return appointment, activity level, and side effect to be aware of. Medication Injected: Med Injected: Procedure is lumbar epidural steroid injection under local anesthetic using sterile prep and drape at the L5-S1 level using C-arm fluoroscopic guidance in both AP and lateral views medications injected is 120 mg Depo-Medrol +10mL preservative-free normal saline and 2 mL contrast- condition at discharge is stable patient tolerated procedure well had no complications. Condition at Discharge: Condition at Discharge: Condition at discharge stable, patient tolerated the procedure well and had no complications. BHARTI GUTIÉRREZ MD Feb 10, 2021 10:22
--- NOTE | 2021-02-10 10:23 | PDOC4 ---
Procedure Note: ICD 10 Code: ICD 10 Code: M54.17 M51.87 M4 8.07 M 96.1 Procedure Note: Patient was consented for lumbar epidural steroid traction with fluoroscopic guidance. Risks were discussed including but not limited to: Bleeding, infection, possibility of epidural hematoma and subsequent neurological compromise, dural puncture, headaches, spinal cord and/or nerve damage, side effects of steroid medication, and poor results regarding pain control. Patient understands and wished to proceed. Procedure is lumbar epidural steroid injection under local anesthetic using sterile prep and drape at the L5-S1 level using C-arm fluoroscopic guidance in both AP and lateral views medications injected is 120 mg Depo-Medrol +10mL preservative-free normal saline and 2 mL contrast- condition at discharge is stable patient tolerated procedure well had no complications. BHARTI GUTIÉRREZ MD Feb 10, 2021 10:23
== END | disposition home or self-care (01) ==
LOC: PNCL 09:18
PROVIDERS: ATTEND Anesthesiology
DX: M51.16 Intervertebral disc disorders with radiculopathy, lumbar region (principal); M48.061 Spinal stenosis, lumbar region without neurogenic claudication; M96.1 Postlaminectomy syndrome, not elsewhere classified; I10 Essential (primary) hypertension; E78.00 Pure hypercholesterolemia, unspecified; F32.9 Major depressive disorder, single episode, unspecified; G47.30 Sleep apnea, unspecified; Z79.82 Long term (current) use of aspirin; Z79.899 Other long term (current) drug therapy; Z72.89 Other problems related to lifestyle; Z98.890 Other specified postprocedural states
CPT/HCPCS: 62323; J1030; J1040; Q9965

== ENCOUNTER → 2021-02-24 | Outpatient (CLI) | payer OTHER ==
[2020-05-15 09:31] VITALS: BP 113/62
[~2021-02-24] MED LIST changes: -IOHEXOL 180 MG/ML 10 ML VIAL. ONE; -methylPREDNISolone ACETATE 40 MG/ML VIAL. ONE; -methylPREDNISolone ACETATE 80 MG/ML VIAL. ONE
--- NOTE | 2021-02-24 10:27 | PDOC ---
Progress Note - Pain Clinic Date of Service: DOS: DATE: 02/24/21 TIME: 10:21 Diagnosis: Dx: Lumbar radiculopathy lumbar degenerative disease lumbar spinal stenosis lumbar post laminectomy syndrome History or Present Illness: HPI: 56-year-old male returns for follow-up status post lumbar epidural steroid injection x2. Patient reports about 75% improvement for the first week or so after the last injection now reducing to 150% overall but the pain is still significantly reduced patient reports is much better than it was rating his low back and left lower extremity posterior gluteus posterior thigh posterior calf patient reports is not traveling as far down the leg at this time patient reports he is increase activity greater distance walking doing household activities work activities with greater ease as well patient reports the pain is stabbing aching dull and sharp in the back alternating and shooting in the leg on the left side on and off in intensity better with sitting or laying down but still waking her from sleep at night over the first few weeks it was doing much better with better ability to sleep as well. Patient reports no bowel or bladder incontinence no loss of motor function but significant fatigability of the left leg with extended standing walking for several hours when he is working as well. Patient rates his pain as 8 on scale 10 is worst 5 on average to its least over the last week and is a 5 today. Patient ALSO complains of significant cluster type headaches on the right side he is seeing his primary physician for this later on today. Physical Exam: VS: Blood pressure is 125/74 pulse 84 respirations 18 temperature 90.2 F weight is 235 pounds PE: PHYSICAL EXAMINATION: GENERAL: The patient is awake, alert, oriented, appropriate, very pleasant in demeanor HEENT: Shows normocephalic, atraumatic. Extraocular movements are intact and symmetrical. Oral cavity: Mucous membranes moist and pink. Dentition is intact. NECK: Shows anterior throat supple without palpable lymphadenopathy noted. Swallow reflex symmetrical. CHEST: Shows normal on inspection. Breath sounds are clear bilaterally, no rales or rhonchi auscultated. HEART: Shows S1, S2 clear. No murmurs auscultated. ABDOMEN: Soft, nontender, nondistended, obese. No palpable organomegaly is noted. BACK: Shows spine grossly in the midline. Normal-appearing cervical lordotic curvature. There is slightly increased thoracic kyphosis, some flattening of the lumbar lordotic curvature. Lumbar paraspinous muscles show symmetrical on inspection, on palpation shows some moderate tenderness diffusely throughout the upper, middle and lower distribution of the paraspinous muscles, but without specific trigger points, without radiation of pain. The patient has good rotational motion of the lumbar spine, both laterally as well as extension and flexion without significant difficulty. EXTREMITIES: Lower extremities show deep tendon reflexes 2+ in the patellar and tendo calcaneus tendons. Motor exam is 5 on a scale of 5 with right dorsiflexion, extension, quadriceps and hamstring flexion and 4/5 on the left. Peripheral pulses are 1+ posterior tibial. No peripheral edema is noted bilaterally. Lower extremities are warm and dry to touch, equal in color and appearance. SKIN: Shows warm and dry, good turgor. No edema. No sores, rashes or bruising throughout. Procedure: Procedure: Options discussed with the patient. Patient chart was viewed as his current medication regimen updated current review of systems updated today as well. Patient has persistent and returning lumbar radiculopathy in L5-S1 dermatomal distribution on the left, we will preauthorize patient for a third lumbar epidural steroid injection with fluoroscopic guidance. Patient will continue with stretching strength exercises the meantime as well as oral analgesics and anti-inflammatories patient was cautioned as to the side effects with the anti- inflammatories including stomach upset, as he is taking these more for his hea dache now as well. Once approved, patient will return for translaminar approach L5-S1 level lumbar epidural steroid injection with fluoroscopic guidance. Medication Injected: Med Injected: None Condition at Discharge: Condition at Discharge: Condition at discharge is stable. BHARTI GUTIÉRREZ MD Feb 24, 2021 10:27
== END | disposition home or self-care (01) ==
LOC: PNCL 09:33
PROVIDERS: ATTEND Anesthesiology
DX: M51.16 Intervertebral disc disorders with radiculopathy, lumbar region (principal); M48.061 Spinal stenosis, lumbar region without neurogenic claudication; M96.1 Postlaminectomy syndrome, not elsewhere classified; G89.29 Other chronic pain; I10 Essential (primary) hypertension; E78.00 Pure hypercholesterolemia, unspecified; F32.9 Major depressive disorder, single episode, unspecified; G47.30 Sleep apnea, unspecified; Z98.890 Other specified postprocedural states; Z79.899 Other long term (current) drug therapy; Z87.19 Personal history of other diseases of the digestive system
CPT/HCPCS: 99212; G0463

== ENCOUNTER → 2021-03-10 | Outpatient (CLI) | payer OTHER ==
[2020-05-15 09:31] VITALS: BP 113/62
[~2021-03-10] MED LIST changes: +TOPI50TA8 PO
--- NOTE | 2021-03-10 10:45 | PDOC ---
Progress Note - Pain Clinic Date of Service: DOS: DATE: 03/10/21 TIME: 10:41 Diagnosis: Dx: Lumbar radiculopathy lumbar degenerative disease lumbar spinal stenosis and lumbar postlaminectomy syndrome History or Present Illness: HPI: 56-year-old male returns status post lumbar epidural steroid injection with about 50% improvement overall initially about 75% improvement of the pain is returning in the low back and in the left lower extremity posterior gluteus posterior thigh posterior calf and mostly in the low back itself patient reports a 7 on scale 10 is worse over the past week 5 on average to its least and is a 5 today patient reported sharp and dull alternating stabbing in the back also radiating shooting in the left lower extremity on and off in intensity worse with activity walking standing. Patient reports prior to that he is doing much better with distance walking doing household activities traveling with greater ease doing work activities. Walking most of his working day with greater ease and comfort but the pain returning now in the left lower extremity. Patient reports no bowel or bladder incontinence. Patient is doing better with his headaches as he was put on topiramate for cluster headaches and this is beginning to help he reports by about 20%. Physical Exam: VS: Blood pressure is 118/71 pulse 73 respirations 18 temperature is 98.3 F weight is 233 pounds PE: PHYSICAL EXAMINATION: GENERAL: The patient is awake, alert, oriented, appropriate, very pleasant in demeanor HEENT: Shows normocephalic, atraumatic. Extraocular movements are intact and symmetrical. Oral cavity: Mucous membranes moist and pink. Dentition is intact. NECK: Shows anterior throat supple without palpable lymphadenopathy noted. Swallow reflex symmetrical. CHEST: Shows normal on inspection. Breath sounds are clear bilaterally, no rales or rhonchi auscultated. HEART: Shows S1, S2 clear. No murmurs auscultated. ABDOMEN: Soft, nontender, nondistended. No palpable organomegaly is noted. BACK: Shows spine grossly in the midline. Normal-appearing cervical lordotic curvature. There is slightly increased thoracic kyphosis, some flattening of the lumbar lordotic curvature. Lumbar paraspinous muscles show symmetrical on inspection, on palpation shows some moderate tenderness diffusely throughout the upper, middle and lower distribution of the paraspinous muscles, but without specific trigger points, without radiation of pain. The patient has good rotational motion of the lumbar spine, both laterally as well as extension and flexion without significant difficulty. No tenderness over the spinous processes, sacrum or sacroiliac regions. EXTREMITIES: Lower extremities show deep tendon reflexes 2+ in the patellar and tendo calcaneus tendons. Motor exam is 5 on a scale of 5 with right dorsiflexion, extension, quadriceps and hamstring flexion and 4/5 on the left. Peripheral pulses are 1+ posterior tibial. No peripheral edema is noted bilaterally. Lower extremities are warm and dry. SKIN: Shows warm and dry, good turgor. No edema. No sores, rashes or bruising throughout. Procedure: Procedure: Options were discussed with patient. Patient's chart was reviewed as was his current medication regimen updated current review of systems updated today as well. We will proceed with a lumbar epidural steroid injection today with fluoroscopic guidance. Risks were discussed including but not limited to: Bleeding, infection, possibility of epidural hematoma and subsequent titi rological compromise, dural puncture, headaches, spinal cord and/or nerve damage, side effects of steroid medication, and poor results regarding pain control. Patient understands and wished to proceed. Patient return to clinic in approximately 2 weeks for follow-up, was counseled as to return appointment, activity level, and side effects to be aware of. Medication Injected: Med Injected: Procedure is lumbar epidural steroid injection under local anesthetic using sterile prep and drape at the L5-S1 level using C-arm fluoroscopic guidance in both AP and lateral views medications injected is 120 mg Depo-Medrol +10mL preservative-free normal saline and 2 mL contrast- condition at discharge is stable patient tolerated procedure well had no complications. Condition at Discharge: Condition at Discharge: Condition at discharge stable, patient tolerated the procedure well and had no complications. BHARTI GUTIÉRREZ MD Mar 10, 2021 10:45
--- NOTE | 2021-03-10 10:45 | PDOC4 ---
Procedure Note: ICD 10 Code: ICD 10 Code: M54.17 M51.87 M48.07 M96.1 Procedure Note: Patient was consented for lumbar epidural steroid injection with fluoroscopic guidance. Risks were discussed including but not limited to: Bleeding, infection, possibility of epidural hematoma and subsequent neurological compromise, dural puncture, headaches, spinal cord and/or nerve damage, side effects of steroid medication, and poor results regarding pain control. Patient understands and wished to proceed. Procedure is lumbar epidural steroid injection under local anesthetic using sterile prep and drape at the L5-S1 level using C-arm fluoroscopic guidance in both AP and lateral views medications injected is 120 mg Depo-Medrol +10mL preservative-free normal saline and 2 mL contrast- condition at discharge is stable patient tolerated procedure well had no complications. BHARTI GUTIÉRREZ MD Mar 10, 2021 10:45
== END | disposition home or self-care (01) ==
LOC: PNCL 10:04
PROVIDERS: ATTEND Anesthesiology
DX: M51.16 Intervertebral disc disorders with radiculopathy, lumbar region (principal); M48.061 Spinal stenosis, lumbar region without neurogenic claudication; M96.1 Postlaminectomy syndrome, not elsewhere classified; I10 Essential (primary) hypertension; E78.00 Pure hypercholesterolemia, unspecified; G47.30 Sleep apnea, unspecified; F32.9 Major depressive disorder, single episode, unspecified; Z79.82 Long term (current) use of aspirin; Z79.899 Other long term (current) drug therapy; Z98.890 Other specified postprocedural states; Z72.89 Other problems related to lifestyle; Z88.6 Allergy status to analgesic agent
CPT/HCPCS: 62323